=== PATIENT | male | born 1995 | race Caucasian/White ===

== ENCOUNTER 2017-07-10 08:31 | Emergency (ER) | payer OTHER ==
[~2017-07-10] VITALS: Ht 160 cm; Wt 56.0 kg
[~2017-07-10 08:31] MED LIST: NO MEDS
[2017-07-10 08:33] VITALS: Ht 160 cm; Wt 56.0 kg
[2017-07-10] MEDS ORDERED: CETI5SOL PO (09:20)
[2017-07-10] MEDS ORDERED: PHEN177L2 PO (09:20)
[2017-07-10] MEDS ORDERED: GUAI120S26 PO (09:21)
--- NOTE | 2017-07-10 09:25 | ERD ---
ER Documentation Chief Complaint Date/Time DATE: 07/10/17 TIME: 09:24 Chief Complaint FLULIKE SYMPTOMS PER DAY, PT AUTISTIC HPI 21-year-old male, presents with his father, has history of autism and has had cough, congestion, runny nose and sore throat for 2 days. Patient has so far been taking NyQuil, and has caused a cough for the that becomes worse at nighttime. Cough has been dry. He has not had any fevers today, although reports tactile fevers over the last day and a half. Denies hemoptysis, chest pain or shortness of breath. Patient is up-to-date with vaccinations. ROS All systems reviewed and are negative except as per history of present illness. Medications Home Meds Active Scripts [id number] Hb* (Guaifenesin* DM Syrup) 120 Ml Syrup, 10 ML PO Q4H Y for COUGH, #4 OZ Prov:GENARO MICHEL PA-C 07/10/17 Cetirizine Hcl* (Cetirizine Hcl*) 5 Mg/5 Ml Solution, 5 ML PO DAILY, #4 OZ Prov:GENARO MICHEL PA-C 07/10/17 Reported Medications [No Meds] No Conflict Check 11/06/10 Allergies Allergies: Coded Allergies: No Known Allergies (Verified Allergy, Mild, 11/06/10) PMhx/Soc Medical and Surgical Hx: pt denies Surgical Hx History of Surgery: No Anesthesia Reaction: No Hx Neurological Disorder: No Hx Respiratory Disorders: No Hx Cardiac Disorders: No Hx Psychiatric Problems: No Hx Miscellaneous Medical Probl: Yes (AUTISM) Hx Alcohol Use: No Hx Substance Use: No Hx Tobacco Use: No Smoking Status: Never smoker Physical Exam Vitals Vital Signs Date Time Temp Pulse Resp B/P Pulse Ox O2 Delivery O2 Flow Rate FiO2 07/10/17 08:33 97.6 77 20 106/63 96 Physical Exam General: Well-developed, well-nourished. The patient appears in no acute distress. HEENT: Head is normocephalic, atraumatic. No scleral icterus. Neck: Supple. Nontender. TMs are normal, oropharynx is clear Lungs: Clear to auscultation. Normal air movement. Heart: Regular rate and rhythm. S1 and S2 are normal. No murmurs, gallops, or rubs. Abdomen: Nondistended. Extremities: No clubbing or cyanosis. Moving extremities x 4. No weakness. Neurologic: Alert and oriented 3. No focal deficits. Normal speech and gait. Skin: Normal turgor. No rash or lesions. Procedures/MDM The patient is a 21-year-old male who comes in with an acute upper respiratory infection, presumed viral. The patient has a differential diagnosis of a viral upper respiratory infection, bacterial upper respiratory infection, bronchitis, pneumonia, pharyngitis, laryngitis, epiglottitis, croup, pneumonia. Patient has a normal pulmonary examination, clear breath sounds, normal pulse oximetry, with no corrective measures needed at this time. Fluids, rest, antipyretics were encouraged. Departure Diagnosis: Primary Impression: Upper respiratory infection Condition: Good Patient Instructions: Uri, Viral, No Abx (Adult) GENARO MICHEL PA-C Jul 10, 2017 09:25
== END 2017-07-10 09:40 | disposition home or self-care (01) ==
LOC: FTE 08:31
DX: J06.9 Acute upper respiratory infection, unspecified (principal); F84.0 Autistic disorder
CPT/HCPCS: 99283

== ENCOUNTER 2017-11-25 11:27 | Emergency (ER) | END 2017-11-25 12:20 | disposition home or self-care (01) ==

== ENCOUNTER 2018-09-03 13:30 | Emergency (ER) | END 2018-09-03 15:41 | disposition home or self-care (01) ==